=== PATIENT | female | born 1955 | race Caucasian/White ===

== ENCOUNTER 2020-09-20 22:16 | Emergency (ER) | payer OTHER ==
[~2020-09-20] VITALS: Ht 162.6 cm; Wt 68.0 kg
[2020-09-21] MEDS ORDERED: CEPHALEXIN500 MG PO ×2 (00:49→01:12)
[2020-09-21 01:04] VITALS: BP 157/78
== END 2020-09-21 01:10 | disposition home or self-care (01) ==
LOC: ER 22:16
DX: S62.633B Displaced fracture of distal phalanx of left middle finger, initial encounter for open fracture (principal); S61.313A Laceration without foreign body of left middle finger with damage to nail, initial encounter; W25.XXXA Contact with sharp glass, initial encounter; Y93.89 Activity, other specified; Y92.89 Other specified places as the place of occurrence of the external cause; Y99.9 Unspecified external cause status